=== PATIENT | female | born 1990 | race African-American/Black ===

== ENCOUNTER 2022-05-09 08:42 | Observation (INO) | payer OTHER ==
[2022-05-09 08:54] VITALS: BMI 27.3
[2022-05-09 11:19] LABS: BASO % 0.8 % (0-2.0); EOS % 2.5 % (0-4.5); LYMPH % 26.5 % (8-40); MCH 20.7 pg (25.7-33.7); MCHC 30.2 g/dl (32.0-36.0); MEAN CELL VOLUME 68.5 fl (80-96); MEAN PLT VOLUME 7.6 fl (7.5-11.1); MONO % 7.3 % (3.8-10.2); NEUT % 62.9 % (42.8-82.8); PLATELET COUNT 337 10^3/uL (134-434); RBC 3.37 M/mm3 (3.60-5.2); WHITE BLOOD COUNT 5.6 K/mm3 (4.0-10.0)
[2022-05-09 11:27] LABS: INR 1.07 (0.83-1.09); PROTHROMBIN TIME (PATIENT) 12.3 SEC (9.7-13.0)
[2022-05-09 11:30] LABS: ACTIVATED PTT 29.1 SECONDS (25.2-36.5)
[2022-05-09 11:54] LABS: ANISOCYTOSIS 3+; MACROCYTOSIS 0
[2022-05-09 12:03] LABS: BLOOD UREA NITROGEN 8.9 mg/dL (7-18)
[2022-05-09 12:06] LABS: CREATININE 0.7 mg/dL (0.55-1.3)
[2022-05-09 12:07] LABS: BILIRUBIN,TOTAL 0.4 mg/dL (0.2-1)
[2022-05-09 12:08] LABS: TOT PROT 7.2 g/dl (6.4-8.2)
[2022-05-09 18:31] LABS: BASO % 0.3 % (0-2.0); EOS % 2.6 % (0-4.5); LYMPH % 27.6 % (8-40); MONO % 7.1 % (3.8-10.2); NEUT % 62.4 % (42.8-82.8)
[2022-05-09 19:08] LABS: HEMATOCRIT 26.6 % (32.4-45.2); HEMOGLOBIN 8.1 GM/dL (10.7-15.3); MCH 21.7 pg (25.7-33.7); MCHC 30.6 g/dl (32.0-36.0); MEAN CELL VOLUME 70.7 fl (80-96); RBC 3.76 M/mm3 (3.60-5.2); WHITE BLOOD COUNT 7.2 K/mm3 (4.0-10.0)
[2022-05-09 19:09] LABS: PLATELET COUNT 334 10^3/uL (134-434); RDW 22.9 % (11.6-15.6)
[2022-05-09 20:17] VITALS: BP 125/85; PULSE 71
[2022-05-09 20:19] VITALS: TEMP 98.3
== END 2022-05-09 20:25 | disposition home or self-care (01) ==
LOC: JER 08:42 → JERBED 11:45
PROVIDERS: ADMIT Internal Medicine; ATTEND Internal Medicine
PROC: 30233N1 Transfusion of Nonautologous Red Blood Cells into Peripheral Vein, Percutaneous Approach (ICD-10-PCS; principal; 2022-05-09)
DX: N92.0 Excessive and frequent menstruation with regular cycle (principal); D25.9 Leiomyoma of uterus, unspecified; D64.9 Anemia, unspecified; R79.89 Other specified abnormal findings of blood chemistry; R42 Dizziness and giddiness
CPT/HCPCS: 36415; 36430; 80053; 82728; 83540; 83550; 85025; 85610; 85730; 86850; 86900; 86901; 86922; 93005; 93010; 99285-25; C9803-CS; G0378; P9058; U0003; U0005

== ENCOUNTER 2022-05-23 23:09 | Observation (INO) | payer OTHER ==
[2022-05-23 23:31] VITALS: BMI 27.3
[2022-05-24 01:18] LABS: EPI CELLS 11 /uL (0-25.1); HYALINE CASTS 2 /uL (0-3.1); URINE APPEARANCE CLEAR; URINE BACTERIA 162 /uL (0-1359); URINE BILIRUBIN NEGATIVE (NEGATIVE); URINE COLOR YELLOW; URINE GLUCOSE (UA) NEGATIVE (NEGATIVE); URINE KETONE TRACE (NEGATIVE); URINE LEUK ESTERASE NEGATIVE (NEGATIVE); URINE NITRITE NEGATIVE (NEGATIVE); URINE PROTEIN TRACE (NEGATIVE); URINE RBC 75 /uL (0-23.9); URINE WBC 11 /uL (0-25.8)
[2022-05-24] MEDS ORDERED: IBUPROFEN 400 MG TABLET (FP) PO ONE ×2 (01:28→01:33)
[2022-05-24 02:25] LABS: BASO % 0.7 % (0-2.0); EOS % 0.2 % (0-4.5); HEMATOCRIT 20.3 % (32.4-45.2); LYMPH % 10.5 % (8-40); MCH 20.9 pg (25.7-33.7); MCHC 30.7 g/dl (32.0-36.0); MEAN CELL VOLUME 67.9 fl (80-96); MONO % 3.6 % (3.8-10.2); PLATELET COUNT 465 10^3/uL (134-434); RBC 2.99 M/mm3 (3.60-5.2); RDW 22.3 % (11.6-15.6); WHITE BLOOD COUNT 7.8 K/mm3 (4.0-10.0)
[2022-05-24 02:28] LABS: ADD RBC MORPHOLOGY YES
[2022-05-24 02:32] LABS: HEMOGLOBIN 6.2 GM/dL (10.7-15.3)
[2022-05-24 02:52] LABS: BLOOD UREA NITROGEN 12.9 mg/dL (7-18)
[2022-05-24 02:55] LABS: CREATININE 0.9 mg/dL (0.55-1.3)
[2022-05-24 02:57] LABS: BILIRUBIN,TOTAL 0.3 mg/dL (0.2-1); TOT PROT 7.2 g/dl (6.4-8.2)
[2022-05-24 03:26] LABS: ANISOCYTOSIS 3+
[2022-05-24] MEDS ORDERED: ACETAMINOPHEN 325 MG TABLET (FP) PO PRN (05:00)
[2022-05-24 06:06] VITALS: PULSE 93; RESP 16
[2022-05-24 06:36] VITALS: BP 100/57; TEMP 97.9
[2022-05-24] MEDS ORDERED: ACETAMINOPHEN 325 MG TABLET (FP) ONE (11:18)
[2022-05-24 13:07] LABS: BASO % 0.7 % (0-2.0); EOS % 1.9 % (0-4.5); HEMATOCRIT 29.4 % (32.4-45.2); HEMOGLOBIN 9.2 GM/dL (10.7-15.3); LYMPH % 28.4 % (8-40); MCH 22.7 pg (25.7-33.7); MCHC 31.3 g/dl (32.0-36.0); MEAN CELL VOLUME 72.6 fl (80-96); MEAN PLT VOLUME 6.8 fl (7.5-11.1); MONO % 7.7 % (3.8-10.2); NEUT % 61.3 % (42.8-82.8); PLATELET COUNT 432 10^3/uL (134-434); RBC 4.05 M/mm3 (3.60-5.2); RDW 22.4 % (11.6-15.6); WHITE BLOOD COUNT 6.7 K/mm3 (4.0-10.0)
[2022-05-24 13:32] LABS: BLOOD UREA NITROGEN 9.3 mg/dL (7-18); CALCIUM 8.8 mg/dL (8.5-10.1)
[2022-05-24 13:36] LABS: CREATININE 0.8 mg/dL (0.55-1.3)
== END 2022-05-24 16:50 | disposition home or self-care (01) ==
LOC: JER 23:09 → JERBED 05-24 04:33
PROVIDERS: ADMIT Hospitalist; ATTEND Internal Medicine
PROC: 30233N1 Transfusion of Nonautologous Red Blood Cells into Peripheral Vein, Percutaneous Approach (ICD-10-PCS; principal; 2022-05-24)
DX: D50.0 Iron deficiency anemia secondary to blood loss (chronic) (principal); R00.0 Tachycardia, unspecified; N93.8 Other specified abnormal uterine and vaginal bleeding; D50.9 Iron deficiency anemia, unspecified; D25.9 Leiomyoma of uterus, unspecified
CPT/HCPCS: 36415; 36430; 76830-TC; 80048; 80053; 81003; 84703; 85025; 86850; 86900; 86901; 86922; 87086; 93005; 93010; 99285-25; C9803-CS; G0378; P9058; U0003; U0005